=== PATIENT | male | born 1970 | race Caucasian/White ===

== ENCOUNTER 2021-07-03 21:44 | Emergency (ER) | payer OTHER, SELFPAY ==
[2021-07-03 21:45] VITALS: BP 134/99; PULSE 85; RESP 20; TEMP 37.5; O2SAT 97; BMI 23.7
[2021-07-03 21:49] VITALS: BP 134/99; PULSE 88; RESP 18; TEMP 37.5; O2SAT 97
--- NOTE | 2021-07-03 22:09 | RAD_ITS ---
STUDY: X-RAY - RIGHT TIBIA AND FIBULA REASON FOR EXAM: Male, 50 years old. Other, pain and swelling to right lower leg mild redness noted to leg TECHNIQUE: 3 view(s) of the tibia and fibula were obtained. COMPARISON: None. FINDINGS: Normal visualized tibia. Normal visualized fibula. There is no demonstrated acute fracture. Mild soft tissue swelling is seen in the middle one third aspect of the right lower leg. No visualized subcutaneous air. No demonstrated osteomyelitis. Mild focal cortical thickening is seen at the lateral aspect of the distal one third fibular shaft. RAD/Tibia & Fibula 2 Views IMPRESSION: 1. Mild soft tissue swelling is seen in the middle one third aspect of the right lower leg. No visualized subcutaneous air. No demonstrated osteomyelitis. Electronically Signed: Chato Castro MD at 23:03 EST , Service support ,
--- NOTE | 2021-07-03 22:29 | EDS_ITS ---
HPI History of Present Illness Chief Complaint: Edema Informant: patient and spouse/S.O. Narrative Narrative: Patient presents with swelling of his right cantrell. This is been going on a week or so. His just found out about it tonight. It starts right above his belt line and goes up a total of about 2 to 3 inches. It gets better at night and then gets worse when he gets on his feet again. This patient did have Covid just a month or so ago. He feels he is over that. He is back to work. He works laying concrete. He states they did do a very large job of 1000 yards of concrete the day this started. Now every day he works it seems to come back. He states that it feels like cantrell splints on his right leg when he steps down. He has no acute or blunt trauma. Never had DVT or PE. No travel. He did have recent Covid. He has no chest pain or dyspnea. Past medical history: None No current medications No known drug allergies No recent surgeries Non-smoker lives with and works full-time. [facility] Medical History COVID Rotator cuff arthropathy Home Medications NK 07/03/21 [History Last Taken Unknown] Allergy/AdvReac Type Severity Reaction Status Date / Time No Known Allergies Allergy Verified 07/03/21 21:53 Social History Smoking Status: Never smoker ROS ROS ED Constitutional Constitutional ED: Denies chills or fever(s) ENT ENT ED: Denies rhinorrhea or sore throat Cardiovascular Cardiovascular: Denies chest pain, palpitations or racing heartbeat Respiratory/Chest Respiratory/Chest: Denies cough, dyspnea, dyspnea on exertion or sputum Gastrointestinal Gastrointestinal: Denies diarrhea, nausea or vomiting Genitourinary Genitourinary ED: Denies dysuria or urinary frequency Musculoskeletal Musculoskeletal: Reports other Details: See history of present illness. Integumentary Denies Abrasions or rash Neurologic Neurologic: Denies paresthesias or weakness Endocrine Endocrinology: Denies polydipsia or polyuria Hematologic/Lymphatic Hematologic/Lymphatic: Denies easy bleeding or easy bruising Allergic/Immunologic Allergic/Immunologic ED: Denies mouth swelling or urticaria EXAM Physical Exam Const Vital Signs: 07/03/21 21:45 07/03/21 21:49 Temperature 99.5 F H 99.5 F H Temperature Source Temporal Temporal Pulse Rate 85 88 Respiratory Rate 20 H 18 Respiratory Effort Normal Respiratory Pattern Normal Blood Pressure 134/99 H 134/99 H Blood Pressure Mean 110 110 Pulse Ox 97 97 Oxygen Delivery Method Room Air Room Air Positive well nourished and well developed General Appearance ED: well developed and NAD HEENT normocephalic Neck full ROM Resp normal respiratory effort Cardio regular rate GI non-tender Palpation: soft Back/Spine no CVA tenderness Extremity Extremity Narrative: Right leg has a band of slight edema that is about 6 cm high circumferentially around the right leg. This starts immediately at the top of his boot and rises from that. The left leg has a similar band but it is very subtle and hard to see. There is no notable warmth. There is no streaking erythema. There is some mild tenderness diffusely in the area. There are no cords felt. No distended veins. There is a local asymmetry of the swelling but the rest of the leg shows no asymmetry side to side. Neuro Sensorium / Orientation: alert Psych mental status grossly normal Skin Skin Narrative: See above. MDM MDM MDM Narrative Medical decision making narrative: Patient has normal electrolytes, normal kidney function, normal glucose. The x-ray did show signs of the swelling that is seen clinically. But this is soft tissue swelling. No sign of bony changes. Ultrasound of the legs were negative for DVT. I think this is likely some localized edema pulling above the top of his boots. It certainly could be related to exposure to an additive in concrete. I recommend ice elevation and compression hose. He can use Tylenol or Motrin. He should follow up with his physician if not improving over the next few days to a week. There is no sign of infection. No erythema. No fevers or chills. Lab Data Attestation: I reviewed the patient's lab results. Labs: Laboratory Results - last 24 hr 07/03/21 22:30 Sodium 139 Potassium 3.5 Chloride 105 Carbon Dioxide 25.0 Anion Gap 9 BUN 7 Creatinine 0.71 Estim Creat Clear Calc 137.54 Est GFR (MDRD) Af Amer 150 Est GFR (MDRD) Non-Af 124 BUN/Creatinine Ratio 9.9 L Glucose 95 Calcium 9.0 Radiography Diagnostic Testing: Clinical Impression(s) from Imaging Studies Tibia/Fibula X-Ray 07/03/21 22:09 IMPRESSION: 1. Mild soft tissue swelling is seen in the middle one third aspect of the right lower leg. No visualized subcutaneous air. No demonstrated osteomyelitis. Electronically Signed: Chato Castro MD at 23:03 EST , Service support , Venous Duplex 07/03/21 22:48 IMPRESSION: Normal venous Doppler ultrasound of the bilateral lower extremities. Electronically Signed: Kartik Carlson DO at 23:53 EST Tel , Service support , Discharge Plan Triage Chief Complaint: Edema ED Provider: Jared Black Dx/Rx/DC Orders Clinical Impression: Bilateral lower extremity edema Instructions: ED Lymphedema Prescriptions: No Action NK RF: 0 Primary Care Provider: Avelino Riggins Referrals: Avelino Riggins DO [Primary Care Provider] - 3-5 Days if not improving Disposition Disposition: Home, Self Care
--- NOTE | 2021-07-03 22:48 | US_ITS ---
STUDY: VENOUS DOPPLER ULTRASOUND - BILATERAL LOWER EXTREMITIES REASON FOR EXAM: Male, 50 years old. undefined -- SWELLING TECHNIQUE: Ultrasound evaluation of the deep vein system to include khan-scale imaging and compression was performed. Khan-scale imaging and Doppler sonographic evaluation, including duplex spectral analysis and qualitative color flow sonography, was performed. COMPARISON: None. FINDINGS: RIGHT LEG Common Femoral Vein: Normal compression, spontaneity and augmentation. Normal color Doppler. Common Femoral Vein/Greater Saphenous Junction: Normal compression, spontaneity and augmentation. Normal color Doppler. Deep Femoral Vein: Normal compression, spontaneity and augmentation. Normal color Doppler. Femoral Proximal: Normal compression, spontaneity and augmentation. Normal color Doppler. Femoral Middle: Normal compression, spontaneity and augmentation. Normal color Doppler. Femoral Distal: Normal compression, spontaneity and augmentation. Normal color Doppler. Popliteal Vein: Normal compression, spontaneity and augmentation. Normal color Doppler. Posterior Tibial Vein: Normal compression, spontaneity and augmentation. Normal color Doppler. Peroneal Vein: Normal compression, spontaneity and augmentation. Normal color Doppler. LEFT LEG Common Femoral Vein: Normal compression, spontaneity and augmentation. Normal color Doppler. Common Femoral Vein/Greater Saphenous Junction: Normal compression, spontaneity and augmentation. Normal color Doppler. Deep Femoral Vein: Normal compression, spontaneity and augmentation. Normal color Doppler. Femoral Proximal: Normal compression, spontaneity and augmentation. Normal color Doppler. Femoral Middle: Normal compression, spontaneity and augmentation. Normal color Doppler. Femoral Distal: Normal compression, spontaneity and augmentation. Normal color Doppler. Popliteal Vein: Normal compression, spontaneity and augmentation. Normal color Doppler. Posterior Tibial Vein: Normal compression, spontaneity and augmentation. Normal color Doppler. Peroneal Vein: Normal compression, spontaneity and augmentation. Normal color Doppler. US/Venous Duplex Imag/Porter Extrem IMPRESSION: Normal venous Doppler ultrasound of the bilateral lower extremities. Electronically Signed: Kartik Carlson DO at 23:53 EST Tel , Service support ,
[2021-07-03 22:53] LABS: Anion Gap 9 (5-15); BUN 7 mg/dL (7-18); BUN/Creat Ratio 9.9 RATIO (10-20); Chloride 105 mmol/L (98-107); Creatinine, Serum 0.71 mg/dL (0.70-1.30); EST Glomerular Filtration Rate 124 mL/min (>60); Est Glom Filt Rate - Afr Amer 150 mL/min (>60); Estimated Creatinine Clearance 137.54 ml/min; Glucose 95 mg/dL (74-106); Potassium 3.5 mmol/L (3.5-5.1); Sodium Level 139 mmol/L (136-145)
== END 2021-07-04 00:31 | disposition home or self-care (01) ==
PROVIDERS: Emergency Provider Emergency Medicine; PCP Student in an Organized Health Care Education/Training Program
DX: R60.0 Localized edema (principal); M79.661 Pain in right lower leg; Z86.16 Personal history of COVID-19
CPT/HCPCS: 73590; 80048; 93970; 99282